=== PATIENT | female | born 1970 | race Asian ===

== ENCOUNTER 2016-06-06 06:03 | Day surgery (SDC) | payer OTHER ==
[~2016-06-06] VITALS: Ht 149.9 cm; Wt 46.3 kg
[2016-06-06] MEDS ORDERED: SODIUM CHLORIDE 0.9% 1,000 ML IV ONE (06:30)
[2016-06-06] MEDS ORDERED: BENZ-26 PO (07:20)
[2016-06-06] MEDS ORDERED: ADV250 IH (07:20)
[2016-06-06] MEDS ORDERED: MONT5TAB13 PO (07:20)
[2016-06-06] MEDS ORDERED: MethylPREDNISolone SOD SUCC 125 MG/2 ML VIAL IVP ONE (08:45)
[2016-06-06] MEDS ORDERED: LIDOCAINE HCL 2% 30 ML JELLY TP ONE (17:24)
[2016-06-06] MEDS ORDERED: ALBUTEROL SULFATE 2.5 MG/0.5 ML NEB SOLUTION NEB ONE (17:24)
[2016-06-06] MEDS ORDERED: BENZOCAINE 20% 50 MCG/SPRAY 57 GM TP ONE (17:24)
[2016-06-06] MEDS ORDERED: LIDOCAINE HCL 4% 50 ML SOLUTION TP ONE (17:24)
[2016-06-06] MEDS ORDERED: OXYGEN THERAPY IH SCH (20:00)
== END 2016-06-06 10:05 | disposition home or self-care (01) ==
LOC: SURGERY 06:03
PROVIDERS: ATTEND Internal Medicine Critical Care Medicine
DX: J38.4 Edema of larynx (principal); B37.0 Candidal stomatitis
CPT/HCPCS: 31623; 31624; 87015; 87070; 87101; 87147; 87205; 87220; 88108; 88312